=== PATIENT | female | born 1940 | race Caucasian/White ===

== ENCOUNTER 2022-06-09 18:16 | Emergency (ER) | payer MEDICARE ==
[2022-06-09] MEDS ORDERED: Sodium Chloride 0.9% 10 ML Syringe FLUSH PRN (18:43)
[2022-06-09] MEDS ORDERED: Sodium Chloride 0.9% 2.5 ML Syringe FLUSH PRN (18:43)
[2022-06-09 18:56] LABS: BLOOD UREA NITROGEN,BUN 33 mg/dL (7.0-18.0); CARBON DIOXIDE,CO2 29.5 mmol/L (21.0-32.0); CHLORIDE,CL 103 mmol/L (98-107); GLUCOSE RANDOM 110 mg/dL (74-106); SODIUM,NA 141 mmol/L (136-145)
[2022-06-09 19:01] LABS: ESTIMATED GFR 45 mL/min (>60)
== END 2022-06-09 21:04 | disposition home or self-care (01) ==
LOC: MW.ED 18:16
DX: N30.00 Acute cystitis without hematuria (principal); R47.89 Other speech disturbances; Z88.0 Allergy status to penicillin; Z88.1 Allergy status to other antibiotic agents; Z88.8 Allergy status to other drugs, medicaments and biological substances
CPT/HCPCS: 36415; 71045; 80048; 81001; 84484; 85025; 87086; 87088; 87186; 93005; 99284; J3490

== ENCOUNTER 2022-09-13 12:22 | Emergency (ER) | payer MEDICARE ==
[2022-09-13 12:54] LABS: BILIRUBIN,URINE NEGATIVE (NEGATIVE); COLOR,URINE ORANGE; GLUCOSE,URINE NEGATIVE (NEGATIVE); KETONES,URINE NEGATIVE (NEGATIVE); LEUKOCYTE ESTERASE,URINE TRACE (NEGATIVE); NITRITE,URINE POSITIVE (NEGATIVE); OCCULT BLOOD,URINE NEGATIVE (NEGATIVE); PH,URINE 5.5 (5.0-8.0); PROTEIN,URINE NEGATIVE (NEGATIVE)
[2022-09-13 13:05] LABS: APPEARANCE,URINE SLT CLOUDY
[2022-09-13 13:07] LABS: BACTERIA,URINE 2+ (NEGATIVE); EPITHELIAL CELLS,URINE OCCASIONAL (NONE-FEW); RBC,URINE 0-2 (0-2/HPF)
== END 2022-09-13 13:24 | disposition home or self-care (01) ==
LOC: MW.ED 12:22
DX: N39.0 Urinary tract infection, site not specified (principal); Z88.0 Allergy status to penicillin; Z88.1 Allergy status to other antibiotic agents; Z88.8 Allergy status to other drugs, medicaments and biological substances
CPT/HCPCS: 81001; 87086; 87088; 87186; 99283

== ENCOUNTER 2022-12-16 10:45 | Emergency (ER) | payer MEDICARE ==
[2022-12-16] MEDS ORDERED: Sodium Chloride 0.9% 2.5 ML Syringe FLUSH PRN (11:10)
[2022-12-16] MEDS ORDERED: Sodium Chloride 0.9% 10 ML Syringe FLUSH PRN (11:10)
[2022-12-16] MEDS ORDERED: Sodium Chloride 0.9% 500 ML IV STA (11:12)
[2022-12-16 12:15] LABS: APPEARANCE,URINE CLEAR; BILIRUBIN,URINE NEGATIVE (NEGATIVE); COLOR,URINE YELLOW; GLUCOSE,URINE NEGATIVE (NEGATIVE); KETONES,URINE NEGATIVE (NEGATIVE); LEUKOCYTE ESTERASE,URINE NEGATIVE (NEGATIVE); NITRITE,URINE NEGATIVE (NEGATIVE); OCCULT BLOOD,URINE NEGATIVE (NEGATIVE); PROTEIN,URINE NEGATIVE (NEGATIVE); UROBILINOGEN,URINE 0.2 EU/dL (<2.0)
[2022-12-16 12:22] LABS: BASOPHILS ABSOLUTE AUTO 0.04 K/uL (0.00-0.20); BASOPHILS PERCENT AUTO 0.4 % (0.0-1.0); EOSINOPHILS ABSOLUTE AUTO 0.19 K/uL (0.00-0.45); EOSINOPHILS PERCENT AUTO 2.1 % (0.0-6.0); HEMATOCRIT 38.1 % (37.0-47.0); HEMOGLOBIN 12.6 g/dL (12.0-16.0); IMMATURE GRAN ABSOLUTE AUTO 0.11 K/uL (0.00-0.05); IMMATURE GRAN PERCENT AUTO 1.2 % (0.0-0.4); LYMPHOCYTES ABSOLUTE AUTO 1.56 K/uL (1.00-4.80); LYMPHOCYTES PERCENT AUTO 16.9 % (24.0-44.0); MEAN CORPUSCULAR HEMOGLOBIN 32.1 pg (28.0-32.0); MEAN CORPUSCULAR HGB CONC 33.1 g/dL (32.0-36.0); MEAN CORPUSCULAR VOLUME 97.2 fL (83.0-99.0); MEAN PLATELET VOLUME 9.2 fL (9.4-12.3); MONOCYTES ABSOLUTE AUTO 1.32 K/uL (0.00-0.80); MONOCYTES PERCENT AUTO 14.3 % (0.0-8.0); NEUTROPHILS PERCENT AUTO 65.1 % (41.0-71.0); PLATELET COUNT,PLT 286 K/uL (150-400); RED BLOOD CELL COUNT 3.92 M/uL (4.10-5.30); WHITE BLOOD CELL COUNT,WBC 9.22 K/uL (3.9-11.3)
[2022-12-16 12:47] LABS: A/G RATIO 0.6 (0.9-1.6); ALBUMIN 2.9 g/dL (3.4-5.0); BILIRUBIN TOTAL 0.2 mg/dL (0.2-1.0); CALCIUM 9.4 mg/dL (8.5-10.1); CARBON DIOXIDE,CO2 28.3 mmol/L (21.0-32.0); CREATININE 1.2 mg/dL (0.6-1.0); EST CRCL DRUG DOSING (CG) 30.14 mL/min; PROTEIN TOTAL,TP 7.4 g/dL (6.4-8.2)
[2022-12-16 13:02] LABS: CORONAVIRUS COVID-19 NAA NEGATIVE (NEGATIVE); INFLUENZA A NAA NEGATIVE (NEGATIVE); INFLUENZA B NAA NEGATIVE (NEGATIVE)
[2022-12-16] MEDS ORDERED: Lidocaine 4% 1 each Patch TOP STA (13:26)
== END 2022-12-16 13:57 | disposition home or self-care (01) ==
LOC: MW.ED 10:45
DX: R39.11 Hesitancy of micturition (principal); R05.1 Acute cough; Z88.0 Allergy status to penicillin; Z88.8 Allergy status to other drugs, medicaments and biological substances; Z88.1 Allergy status to other antibiotic agents; Z79.899 Other long term (current) drug therapy; Z20.822 Contact with and (suspected) exposure to COVID-19
CPT/HCPCS: 0240U; 36415; 51798; 71046; 80053; 81003; 83690; 85025; 96360; 99283; A9270; J3490; J7030

== ENCOUNTER 2023-04-03 12:09 | Emergency (ER) | payer MEDICARE ==
[2023-04-03 12:34] LABS: APPEARANCE,URINE SLT CLOUDY; BILIRUBIN,URINE NEGATIVE (NEGATIVE); COLOR,URINE YELLOW; GLUCOSE,URINE NEGATIVE (NEGATIVE); KETONES,URINE NEGATIVE (NEGATIVE); LEUKOCYTE ESTERASE,URINE LARGE (NEGATIVE); NITRITE,URINE NEGATIVE (NEGATIVE); OCCULT BLOOD,URINE NEGATIVE (NEGATIVE); PROTEIN,URINE NEGATIVE (NEGATIVE); UROBILINOGEN,URINE 0.2 EU/dL (<2.0)
[2023-04-03 12:52] LABS: BACTERIA,URINE 1+ (NEGATIVE); EPITHELIAL CELLS,URINE FEW (NONE-FEW); MUCUS,URINE LIGHT (NONE-MOD); RBC,URINE 0-2 (0-2/HPF)
== END 2023-04-03 13:23 | disposition home or self-care (01) ==
LOC: MW.ED 12:09
DX: N39.0 Urinary tract infection, site not specified (principal); Z88.0 Allergy status to penicillin; Z88.8 Allergy status to other drugs, medicaments and biological substances; Z79.899 Other long term (current) drug therapy
CPT/HCPCS: 81001; 87086; 99283

== ENCOUNTER 2023-06-14 10:50 | Emergency (ER) | payer MEDICARE ==
[2023-06-14 12:11] LABS: APPEARANCE,URINE CLEAR; BILIRUBIN,URINE NEGATIVE (NEGATIVE); COLOR,URINE YELLOW; GLUCOSE,URINE NEGATIVE (NEGATIVE); KETONES,URINE NEGATIVE (NEGATIVE); LEUKOCYTE ESTERASE,URINE NEGATIVE (NEGATIVE); NITRITE,URINE NEGATIVE (NEGATIVE); OCCULT BLOOD,URINE NEGATIVE (NEGATIVE); PROTEIN,URINE NEGATIVE (NEGATIVE); UROBILINOGEN,URINE 0.2 EU/dL (<2.0)
[2023-06-14 12:31] LABS: BASOPHILS ABSOLUTE AUTO 0.04 K/uL (0.00-0.20); BASOPHILS PERCENT AUTO 0.7 % (0.0-1.0); EOSINOPHILS ABSOLUTE AUTO 0.19 K/uL (0.00-0.45); EOSINOPHILS PERCENT AUTO 3.2 % (0.0-6.0); HEMATOCRIT 35.2 % (37.0-47.0); HEMOGLOBIN 10.9 g/dL (12.0-16.0); IMMATURE GRAN ABSOLUTE AUTO 0.03 K/uL (0.00-0.05); IMMATURE GRAN PERCENT AUTO 0.5 % (0.0-0.4); LYMPHOCYTES ABSOLUTE AUTO 1.36 K/uL (1.00-4.80); LYMPHOCYTES PERCENT AUTO 22.7 % (24.0-44.0); MEAN CORPUSCULAR HEMOGLOBIN 31.1 pg (28.0-32.0); MEAN CORPUSCULAR VOLUME 100.6 fL (83.0-99.0); MEAN PLATELET VOLUME 9.4 fL (9.4-12.3); MONOCYTES ABSOLUTE AUTO 0.96 K/uL (0.00-0.80); NEUTROPHILS ABSOLUTE AUTO 3.41 K/uL (1.80-7.70); NEUTROPHILS PERCENT AUTO 56.9 % (41.0-71.0); PLATELET COUNT,PLT 261 K/uL (150-400); WHITE BLOOD CELL COUNT,WBC 5.99 K/uL (3.9-11.3)
[2023-06-14 13:09] LABS: MAGNESIUM 2.3 mg/dL (1.8-2.4)
[2023-06-14 13:10] LABS: A/G RATIO 0.7 (0.9-1.6); BILIRUBIN TOTAL 0.2 mg/dL (0.2-1.0); CALCIUM 10.4 mg/dL (8.5-10.1); CARBON DIOXIDE,CO2 36.4 mmol/L (21.0-32.0); CREATININE 1.4 mg/dL (0.6-1.0); EST CRCL DRUG DOSING (CG) 24.74 mL/min; PROTEIN TOTAL,TP 7.1 g/dL (6.4-8.2)
[2023-06-14] MEDS: Furosemide 40 MG/4 ML VIAL IVPUSH STA (13:43)
[2023-06-14] MEDS: methylPREDNISolone Sodium Succinate 125 MG/2 ML SDV IVPUSH STA (13:43)
[2023-06-14] MEDS: Albuterol/Ipratropium 3.0-0.5 MG/3 ML Neb Soln NEB STA (13:43)
== END 2023-06-14 16:02 | disposition home or self-care (01) ==
LOC: MW.ED 10:50
DX: R60.0 Localized edema (principal); J44.9 Chronic obstructive pulmonary disease, unspecified; I25.10 Atherosclerotic heart disease of native coronary artery without angina pectoris; I50.9 Heart failure, unspecified; Z95.0 Presence of cardiac pacemaker; Z79.899 Other long term (current) drug therapy; Z75.8 Other problems related to medical facilities and other health care
CPT/HCPCS: 36415; 71046; 71046-26; 80053; 81003; 83690; 83735; 83880; 84484; 85025; 93005; 93010; 96374; 96375; 99284; 99284-25; J1940; J2930; J7620-GY

== ENCOUNTER 2023-06-23 10:08 | Emergency (ER) | payer MEDICARE ==
[2023-06-23 10:31] LABS: APPEARANCE,URINE CLEAR; BILIRUBIN,URINE NEGATIVE (NEGATIVE); COLOR,URINE STRAW; GLUCOSE,URINE NEGATIVE (NEGATIVE); KETONES,URINE NEGATIVE (NEGATIVE); LEUKOCYTE ESTERASE,URINE NEGATIVE (NEGATIVE); NITRITE,URINE NEGATIVE (NEGATIVE); OCCULT BLOOD,URINE NEGATIVE (NEGATIVE); PROTEIN,URINE NEGATIVE (NEGATIVE); UROBILINOGEN,URINE 0.2 EU/dL (<2.0)
[2023-06-23 10:53] LABS: BASOPHILS ABSOLUTE AUTO 0.02 K/uL (0.00-0.20); BASOPHILS PERCENT AUTO 0.3 % (0.0-1.0); EOSINOPHILS ABSOLUTE AUTO 0.16 K/uL (0.00-0.45); EOSINOPHILS PERCENT AUTO 2.2 % (0.0-6.0); HEMATOCRIT 36.6 % (37.0-47.0); HEMOGLOBIN 11.5 g/dL (12.0-16.0); IMMATURE GRAN ABSOLUTE AUTO 0.03 K/uL (0.00-0.05); IMMATURE GRAN PERCENT AUTO 0.4 % (0.0-0.4); LYMPHOCYTES ABSOLUTE AUTO 1.57 K/uL (1.00-4.80); LYMPHOCYTES PERCENT AUTO 21.1 % (24.0-44.0); MEAN CORPUSCULAR HEMOGLOBIN 31.7 pg (28.0-32.0); MEAN CORPUSCULAR HGB CONC 31.4 g/dL (32.0-36.0); MEAN CORPUSCULAR VOLUME 100.8 fL (83.0-99.0); MEAN PLATELET VOLUME 9.7 fL (9.4-12.3); MONOCYTES PERCENT AUTO 14.8 % (0.0-8.0); NEUTROPHILS ABSOLUTE AUTO 4.56 K/uL (1.80-7.70); NEUTROPHILS PERCENT AUTO 61.2 % (41.0-71.0); PLATELET COUNT,PLT 247 K/uL (150-400); RED BLOOD CELL COUNT 3.63 M/uL (4.10-5.30); WHITE BLOOD CELL COUNT,WBC 7.44 K/uL (3.9-11.3)
[2023-06-23 11:22] LABS: A/G RATIO 0.8 (0.9-1.6); ALBUMIN 3.4 g/dL (3.4-5.0); BILIRUBIN TOTAL 0.4 mg/dL (0.2-1.0); CALCIUM 10.4 mg/dL (8.5-10.1); CARBON DIOXIDE,CO2 34.9 mmol/L (21.0-32.0); CREATININE 1.1 mg/dL (0.6-1.0); EST CRCL DRUG DOSING (CG) 32.87 mL/min; MAGNESIUM 2.1 mg/dL (1.8-2.4); POTASSIUM,K 4.2 mmol/L (3.5-5.1); PROTEIN TOTAL,TP 7.5 g/dL (6.4-8.2)
== END 2023-06-23 13:32 | disposition home or self-care (01) ==
LOC: MW.ED 10:08
DX: R42 Dizziness and giddiness (principal); I50.9 Heart failure, unspecified; I25.10 Atherosclerotic heart disease of native coronary artery without angina pectoris; Z75.8 Other problems related to medical facilities and other health care; Z88.0 Allergy status to penicillin; Z88.1 Allergy status to other antibiotic agents; Z88.8 Allergy status to other drugs, medicaments and biological substances; Z79.899 Other long term (current) drug therapy; Z95.0 Presence of cardiac pacemaker; Z90.710 Acquired absence of both cervix and uterus
CPT/HCPCS: 36415; 70450; 70450-26; 80053; 81003; 83735; 84484; 85025; 93005; 93010; 93970; 93970-26; 99282; 99284

== ENCOUNTER 2023-07-06 11:44 | Inpatient (IN) | payer MEDICARE ==
[2023-07-06] MEDS: Sodium Chloride 0.9% 2.5 ML Syringe FLUSH PRN (12:02)
[2023-07-06] MEDS: Sodium Chloride 0.9% 10 ML Syringe FLUSH PRN (12:02)
[2023-07-06 12:22] LABS: BASOPHILS ABSOLUTE AUTO 0.02 K/uL (0.00-0.20); BASOPHILS PERCENT AUTO 0.2 % (0.0-1.0); EOSINOPHILS ABSOLUTE AUTO 0.16 K/uL (0.00-0.45); HEMATOCRIT 34.7 % (37.0-47.0); HEMOGLOBIN 10.8 g/dL (12.0-16.0); IMMATURE GRAN ABSOLUTE AUTO 0.04 K/uL (0.00-0.05); IMMATURE GRAN PERCENT AUTO 0.5 % (0.0-0.4); LYMPHOCYTES PERCENT AUTO 6.2 % (24.0-44.0); MEAN CORPUSCULAR HEMOGLOBIN 31.7 pg (28.0-32.0); MEAN CORPUSCULAR HGB CONC 31.1 g/dL (32.0-36.0); MEAN CORPUSCULAR VOLUME 101.8 fL (83.0-99.0); MEAN PLATELET VOLUME 9.6 fL (9.4-12.3); MONOCYTES ABSOLUTE AUTO 1.02 K/uL (0.00-0.80); MONOCYTES PERCENT AUTO 12.6 % (0.0-8.0); NEUTROPHILS ABSOLUTE AUTO 6.37 K/uL (1.80-7.70); NEUTROPHILS PERCENT AUTO 78.5 % (41.0-71.0); PLATELET COUNT,PLT 219 K/uL (150-400); RED BLOOD CELL COUNT 3.41 M/uL (4.10-5.30); WHITE BLOOD CELL COUNT,WBC 8.11 K/uL (3.9-11.3)
[2023-07-06 13:11] LABS: A/G RATIO 0.8 (0.9-1.6); ALBUMIN 3.3 g/dL (3.4-5.0); BILIRUBIN TOTAL 0.4 mg/dL (0.2-1.0); CALCIUM 10.2 mg/dL (8.5-10.1); CARBON DIOXIDE,CO2 29.9 mmol/L (21.0-32.0); CREATININE 1.2 mg/dL (0.6-1.0); EST CRCL DRUG DOSING (CG) 28.87 mL/min; POTASSIUM,K 4.5 mmol/L (3.5-5.1); PROTEIN TOTAL,TP 7.6 g/dL (6.4-8.2)
[2023-07-06] MEDS: Furosemide 40 MG/4 ML VIAL IVPUSH ONE ×2 (14:35→20:14)
[2023-07-06 16:25] LABS: CORONAVIRUS COVID-19 NAA NEGATIVE (NEGATIVE); INFLUENZA A NAA POSITIVE (NEGATIVE); INFLUENZA B NAA NEGATIVE (NEGATIVE); RESPIRATORY SYNCYTIAL VIR NAA NEGATIVE (NEGATIVE)
[2023-07-06] MEDS ORDERED: Naloxone 0.4 MG/ML SDV IVPUSH PRN (18:17)
[2023-07-06] MEDS ORDERED: Ondansetron 4 MG Tab.DIS PO PRN (18:17)
[2023-07-06] MEDS ORDERED: Polyethylene Glycol 3350 Powder 17 GM Packet PO PRN (18:17)
[2023-07-06] MEDS ORDERED: Morphine 2 MG/ML SYRINGE IVPUSH PRN (18:17)
[2023-07-06] MEDS ORDERED: Enoxaparin 40 MG/0.4 ML Syringe SUBCUT SCH (18:30)
[2023-07-06] MEDS ORDERED: Oseltamivir 30 MG Cap PO SCH (18:30)
[2023-07-06] MEDS ORDERED: Enoxaparin 30 MG/0.3 ML Syringe SUBCUT SCH (19:00)
[2023-07-06] MEDS: Pantoprazole 40 MG in Sodium Chloride 0.9% 10 ML IVPUSH SCH (19:02)
[2023-07-06] MEDS: Oseltamivir 75 MG Cap PO ONE (19:02)
[2023-07-06] MEDS: Enoxaparin 40 MG/0.4 ML Syringe SUBCUT SCH (19:04)
[2023-07-06] MEDS: cefTRIAXone 1 GM in Sodium Chloride 0.9% 50 ML IV SCH (20:14)
[2023-07-06] MEDS: methylPREDNISolone Sodium Succinate 125 MG/2 ML SDV IVPUSH ONE (20:14)
[2023-07-06] MEDS: Albuterol/Ipratropium 3.0-0.5 MG/3 ML Neb Soln NEB PRN (20:25)
[2023-07-07] MEDS: Bacitracin/Neomycin/Polymyxin B Oint 28.4 GM Tube TOP PRN (02:53)
[2023-07-07] MEDS: Acetaminophen 325 MG Tab PO PRN (03:13)
[2023-07-07 06:00] LABS: BASOPHILS ABSOLUTE AUTO 0.01 K/uL (0.00-0.20); BASOPHILS PERCENT AUTO 0.2 % (0.0-1.0); HEMATOCRIT 31.7 % (37.0-47.0); HEMOGLOBIN 10.1 g/dL (12.0-16.0); IMMATURE GRAN ABSOLUTE AUTO 0.04 K/uL (0.00-0.05); IMMATURE GRAN PERCENT AUTO 0.9 % (0.0-0.4); LYMPHOCYTES ABSOLUTE AUTO 0.55 K/uL (1.00-4.80); LYMPHOCYTES PERCENT AUTO 12.7 % (24.0-44.0); MEAN CORPUSCULAR HGB CONC 31.9 g/dL (32.0-36.0); MEAN CORPUSCULAR VOLUME 100.3 fL (83.0-99.0); MEAN PLATELET VOLUME 9.6 fL (9.4-12.3); MONOCYTES ABSOLUTE AUTO 0.22 K/uL (0.00-0.80); MONOCYTES PERCENT AUTO 5.1 % (0.0-8.0); NEUTROPHILS ABSOLUTE AUTO 3.52 K/uL (1.80-7.70); NEUTROPHILS PERCENT AUTO 81.1 % (41.0-71.0); PLATELET COUNT,PLT 191 K/uL (150-400); RED BLOOD CELL COUNT 3.16 M/uL (4.10-5.30); WHITE BLOOD CELL COUNT,WBC 4.34 K/uL (3.9-11.3)
[2023-07-07 06:22] LABS: A/G RATIO 0.7 (0.9-1.6); ALBUMIN 2.7 g/dL (3.4-5.0); BILIRUBIN TOTAL 0.2 mg/dL (0.2-1.0); CALCIUM 9.2 mg/dL (8.5-10.1); CARBON DIOXIDE,CO2 32.9 mmol/L (21.0-32.0); CREATININE 1.5 mg/dL (0.6-1.0); EST CRCL DRUG DOSING (CG) 23.09 mL/min; POTASSIUM,K 4.3 mmol/L (3.5-5.1); PROTEIN TOTAL,TP 6.6 g/dL (6.4-8.2)
[2023-07-07] MEDS: Furosemide 40 MG/4 ML VIAL IVPUSH SCH (08:05)
[2023-07-07] MEDS: methylPREDNISolone Sodium Succinate 40 MG/1 ML SDV IVPUSH SCH (08:05)
[2023-07-07] MEDS: Oseltamivir 30 MG Cap PO SCH (08:07)
[2023-07-07] MEDS: Clopidogrel 75 MG Tab PO SCH (08:07)
[2023-07-07] MEDS: Metoprolol Succinate 50 MG Tab.ER PO SCH (08:41)
[2023-07-07] MEDS: Enoxaparin 30 MG/0.3 ML Syringe SUBCUT SCH (20:00)
[2023-07-07] MEDS: traZODone 50 MG Tab PO PRN (23:29)
[2023-07-08 07:01] LABS: BASOPHILS ABSOLUTE AUTO 0.01 K/uL (0.00-0.20); BASOPHILS PERCENT AUTO 0.2 % (0.0-1.0); HEMATOCRIT 30.3 % (37.0-47.0); IMMATURE GRAN ABSOLUTE AUTO 0.02 K/uL (0.00-0.05); IMMATURE GRAN PERCENT AUTO 0.5 % (0.0-0.4); LYMPHOCYTES ABSOLUTE AUTO 0.63 K/uL (1.00-4.80); LYMPHOCYTES PERCENT AUTO 14.8 % (24.0-44.0); MEAN CORPUSCULAR HEMOGLOBIN 32.4 pg (28.0-32.0); MEAN CORPUSCULAR VOLUME 98.1 fL (83.0-99.0); MEAN PLATELET VOLUME 10.2 fL (9.4-12.3); MONOCYTES ABSOLUTE AUTO 0.87 K/uL (0.00-0.80); MONOCYTES PERCENT AUTO 20.4 % (0.0-8.0); NEUTROPHILS ABSOLUTE AUTO 2.73 K/uL (1.80-7.70); NEUTROPHILS PERCENT AUTO 64.1 % (41.0-71.0); PLATELET COUNT,PLT 189 K/uL (150-400); RED BLOOD CELL COUNT 3.09 M/uL (4.10-5.30); WHITE BLOOD CELL COUNT,WBC 4.26 K/uL (3.9-11.3)
[2023-07-08 07:14] LABS: A/G RATIO 0.7 (0.9-1.6); ALBUMIN 2.5 g/dL (3.4-5.0); BILIRUBIN TOTAL 0.1 mg/dL (0.2-1.0); CALCIUM 8.5 mg/dL (8.5-10.1); CARBON DIOXIDE,CO2 30.5 mmol/L (21.0-32.0); CREATININE 1.5 mg/dL (0.6-1.0); EST CRCL DRUG DOSING (CG) 23.09 mL/min; POTASSIUM,K 3.4 mmol/L (3.5-5.1); PROTEIN TOTAL,TP 6.2 g/dL (6.4-8.2)
[2023-07-08] MEDS: Metoprolol Succinate 25 MG Tab.ER PO SCH (08:38)
[2023-07-09 06:20] LABS: HEMATOCRIT 33.3 % (37.0-47.0); HEMOGLOBIN 10.6 g/dL (12.0-16.0); IMMATURE GRAN ABSOLUTE AUTO 0.02 K/uL (0.00-0.05); IMMATURE GRAN PERCENT AUTO 0.6 % (0.0-0.4); LYMPHOCYTES ABSOLUTE AUTO 0.56 K/uL (1.00-4.80); LYMPHOCYTES PERCENT AUTO 17.3 % (24.0-44.0); MEAN CORPUSCULAR HEMOGLOBIN 31.9 pg (28.0-32.0); MEAN CORPUSCULAR HGB CONC 31.8 g/dL (32.0-36.0); MEAN CORPUSCULAR VOLUME 100.3 fL (83.0-99.0); MONOCYTES ABSOLUTE AUTO 0.38 K/uL (0.00-0.80); MONOCYTES PERCENT AUTO 11.7 % (0.0-8.0); NEUTROPHILS ABSOLUTE AUTO 2.28 K/uL (1.80-7.70); NEUTROPHILS PERCENT AUTO 70.4 % (41.0-71.0); PLATELET COUNT,PLT 214 K/uL (150-400); RED BLOOD CELL COUNT 3.32 M/uL (4.10-5.30); WHITE BLOOD CELL COUNT,WBC 3.24 K/uL (3.9-11.3)
[2023-07-09 06:42] LABS: A/G RATIO 0.7 (0.9-1.6); ALBUMIN 2.5 g/dL (3.4-5.0); BILIRUBIN TOTAL 0.1 mg/dL (0.2-1.0); CALCIUM 8.5 mg/dL (8.5-10.1); CARBON DIOXIDE,CO2 32.9 mmol/L (21.0-32.0); CREATININE 1.4 mg/dL (0.6-1.0); EST CRCL DRUG DOSING (CG) 24.74 mL/min; POTASSIUM,K 3.8 mmol/L (3.5-5.1); PROTEIN TOTAL,TP 6.1 g/dL (6.4-8.2)
== END 2023-07-09 17:20 | disposition home or self-care (01) | DRG 193 ==
LOC: MW.ED 11:44 → MW.MS 17:24 → OBSVTOIN 07-07 09:43
PROVIDERS: ADMIT Family Medicine; ATTEND Internal Medicine
DX: J96.91 Respiratory failure, unspecified with hypoxia (principal); I50.9 Heart failure, unspecified; J11.1 Influenza due to unidentified influenza virus with other respiratory manifestations; J10.1 Influenza due to other identified influenza virus with other respiratory manifestations; Z88.8 Allergy status to other drugs, medicaments and biological substances; I50.33 Acute on chronic diastolic (congestive) heart failure; J96.01 Acute respiratory failure with hypoxia; J44.0 Chronic obstructive pulmonary disease with (acute) lower respiratory infection; J44.1 Chronic obstructive pulmonary disease with (acute) exacerbation; I25.10 Atherosclerotic heart disease of native coronary artery without angina pectoris; I35.0 Nonrheumatic aortic (valve) stenosis; H91.90 Unspecified hearing loss, unspecified ear; M19.90 Unspecified osteoarthritis, unspecified site; M81.0 Age-related osteoporosis without current pathological fracture; F41.9 Anxiety disorder, unspecified; Z88.0 Allergy status to penicillin; Z88.1 Allergy status to other antibiotic agents; Z95.0 Presence of cardiac pacemaker; Z79.02 Long term (current) use of antithrombotics/antiplatelets; Z98.49 Cataract extraction status, unspecified eye; Z90.710 Acquired absence of both cervix and uterus; Z79.899 Other long term (current) drug therapy
CPT/HCPCS: 0241U; 36415; 71045; 80053; 83880; 84484; 85025; 93306; 96374; 97162; 99285; 93010; 96375; 96376; A9270-GY; C9113; G0378; J0696; J1650; J1940; J2920; J2930; J3490; J7620-GY

== ENCOUNTER 2023-11-27 12:53 | Inpatient (IN) | payer MEDICARE ==
[2023-11-27 13:52] LABS: BASOPHILS ABSOLUTE AUTO 0.03 K/uL (0.00-0.20); BASOPHILS PERCENT AUTO 0.4 % (0.0-1.0); EOSINOPHILS ABSOLUTE AUTO 0.16 K/uL (0.00-0.45); EOSINOPHILS PERCENT AUTO 1.9 % (0.0-6.0); HEMATOCRIT 35.8 % (37.0-47.0); HEMOGLOBIN 11.2 g/dL (12.0-16.0); IMMATURE GRAN ABSOLUTE AUTO 0.03 K/uL (0.00-0.05); IMMATURE GRAN PERCENT AUTO 0.4 % (0.0-0.4); LYMPHOCYTES ABSOLUTE AUTO 1.62 K/uL (1.00-4.80); MEAN CORPUSCULAR HEMOGLOBIN 30.9 pg (28.0-32.0); MEAN CORPUSCULAR HGB CONC 31.3 g/dL (32.0-36.0); MEAN CORPUSCULAR VOLUME 98.9 fL (83.0-99.0); MEAN PLATELET VOLUME 9.4 fL (9.4-12.3); MONOCYTES ABSOLUTE AUTO 1.23 K/uL (0.00-0.80); MONOCYTES PERCENT AUTO 14.4 % (0.0-8.0); NEUTROPHILS ABSOLUTE AUTO 5.47 K/uL (1.80-7.70); NEUTROPHILS PERCENT AUTO 63.9 % (41.0-71.0); PLATELET COUNT,PLT 218 K/uL (150-400); RED BLOOD CELL COUNT 3.62 M/uL (4.10-5.30); WHITE BLOOD CELL COUNT,WBC 8.54 K/uL (3.9-11.3)
[2023-11-27] MEDS: Sodium Chloride 0.9% 2.5 ML Syringe FLUSH PRN (13:52)
[2023-11-27] MEDS: Sodium Chloride 0.9% 1,000 ML IV ONE (13:52)
[2023-11-27] MEDS: methylPREDNISolone Sodium Succinate 125 MG/2 ML SDV IVPUSH ONE (13:52)
[2023-11-27] MEDS: Sodium Chloride 0.9% 10 ML Syringe FLUSH PRN (13:52)
[2023-11-27 14:09] LABS: CORONAVIRUS COVID-19 NAA NEGATIVE (NEGATIVE); INFLUENZA A NAA NEGATIVE (NEGATIVE); INFLUENZA B NAA NEGATIVE (NEGATIVE); RESPIRATORY SYNCYTIAL VIR NAA NEGATIVE (NEGATIVE)
[2023-11-27] MEDS: Albuterol/Ipratropium 3.0-0.5 MG/3 ML Neb Soln NEB ONE (14:12)
[2023-11-27 14:27] LABS: A/G RATIO 0.9 (0.9-1.6); ALBUMIN 3.4 g/dL (3.4-5.0); BILIRUBIN TOTAL 0.3 mg/dL (0.2-1.0); CALCIUM 9.8 mg/dL (8.5-10.1); CARBON DIOXIDE,CO2 38.1 mmol/L (21.0-32.0); CREATININE 1.5 mg/dL (0.6-1.0); EST CRCL DRUG DOSING (CG) 21.69 mL/min; MAGNESIUM 2.5 mg/dL (1.8-2.4); POTASSIUM,K 4.2 mmol/L (3.5-5.1); PROTEIN TOTAL,TP 7.4 g/dL (6.4-8.2)
[2023-11-27 15:21] LABS: APPEARANCE,URINE CLEAR; BILIRUBIN,URINE NEGATIVE (NEGATIVE); COLOR,URINE YELLOW; GLUCOSE,URINE NEGATIVE (NEGATIVE); KETONES,URINE NEGATIVE (NEGATIVE); LEUKOCYTE ESTERASE,URINE NEGATIVE (NEGATIVE); NITRITE,URINE NEGATIVE (NEGATIVE); OCCULT BLOOD,URINE NEGATIVE (NEGATIVE); PH,URINE 6.5 (5.0-8.0); PROTEIN,URINE NEGATIVE (NEGATIVE); UROBILINOGEN,URINE 0.2 EU/dL (<2.0)
[2023-11-27] MEDS: cefTRIAXone 1 GM in Sodium Chloride 0.9% 50 ML IV ONE (15:26)
[2023-11-27] MEDS: Azithromycin 500 MG in Sodium Chloride 0.9% 250 ML IV ONE (15:26)
[2023-11-27] MEDS ORDERED: Albuterol/Ipratropium 3.0-0.5 MG/3 ML Neb Soln NEB PRN (16:17)
[2023-11-27] MEDS: Formoterol/Mometasone 200-5 MCG 8.8 GM Inhaler INH SCH (17:42)
[2023-11-27] MEDS: Furosemide 40 MG Tab PO SCH (17:42)
[2023-11-27] MEDS: Acetaminophen 325 MG Tab PO PRN (20:45)
[2023-11-27] MEDS: Enoxaparin 30 MG/0.3 ML Syringe SUBCUT SCH (20:46)
[2023-11-27] MEDS: ALPRAZolam 0.25 MG Tab PO PRN (20:46)
[2023-11-27] MEDS: guaiFENesin 600 MG Tab.ER PO SCH (20:47)
[2023-11-28 06:19] LABS: BASOPHILS ABSOLUTE AUTO 0.01 K/uL (0.00-0.20); BASOPHILS PERCENT AUTO 0.2 % (0.0-1.0); EOSINOPHILS ABSOLUTE AUTO 0.01 K/uL (0.00-0.45); EOSINOPHILS PERCENT AUTO 0.2 % (0.0-6.0); HEMOGLOBIN 10.1 g/dL (12.0-16.0); IMMATURE GRAN ABSOLUTE AUTO 0.02 K/uL (0.00-0.05); IMMATURE GRAN PERCENT AUTO 0.3 % (0.0-0.4); LYMPHOCYTES ABSOLUTE AUTO 1.11 K/uL (1.00-4.80); MEAN CORPUSCULAR HEMOGLOBIN 30.6 pg (28.0-32.0); MEAN CORPUSCULAR HGB CONC 30.6 g/dL (32.0-36.0); MEAN PLATELET VOLUME 9.9 fL (9.4-12.3); MONOCYTES ABSOLUTE AUTO 0.53 K/uL (0.00-0.80); MONOCYTES PERCENT AUTO 8.1 % (0.0-8.0); NEUTROPHILS ABSOLUTE AUTO 4.85 K/uL (1.80-7.70); NEUTROPHILS PERCENT AUTO 74.2 % (41.0-71.0); PLATELET COUNT,PLT 224 K/uL (150-400); WHITE BLOOD CELL COUNT,WBC 6.53 K/uL (3.9-11.3)
[2023-11-28 06:42] LABS: A/G RATIO 0.8 (0.9-1.6); ALBUMIN 2.9 g/dL (3.4-5.0); BILIRUBIN TOTAL 0.3 mg/dL (0.2-1.0); CALCIUM 8.7 mg/dL (8.5-10.1); CARBON DIOXIDE,CO2 37.1 mmol/L (21.0-32.0); CREATININE 1.4 mg/dL (0.6-1.0); EST CRCL DRUG DOSING (CG) 23.24 mL/min; POTASSIUM,K 3.8 mmol/L (3.5-5.1); PROTEIN TOTAL,TP 6.7 g/dL (6.4-8.2)
[2023-11-28] MEDS: Digoxin 125 MCG Tab PO SCH (08:04)
[2023-11-28] MEDS: Furosemide 80 MG Tab PO SCH (08:04)
[2023-11-28] MEDS: Clopidogrel 75 MG Tab PO SCH (08:04)
[2023-11-28] MEDS: predniSONE 20 MG Tab PO SCH (08:04)
[2023-11-28] MEDS: cefTRIAXone 1 GM in Sodium Chloride 0.9% 50 ML IV SCH (13:50)
[2023-11-28] MEDS: Azithromycin 500 MG in Sodium Chloride 0.9% 250 ML IV SCH (14:58)
[2023-11-28] MEDS ORDERED: Ondansetron 4 MG Tab PO PRN (15:16)
[2023-11-29] MEDS: Furosemide 80 MG Tab PO SCH (05:36)
[2023-11-29 06:53] LABS: BASOPHILS ABSOLUTE AUTO 0.01 K/uL (0.00-0.20); BASOPHILS PERCENT AUTO 0.1 % (0.0-1.0); EOSINOPHILS ABSOLUTE AUTO 0.02 K/uL (0.00-0.45); EOSINOPHILS PERCENT AUTO 0.2 % (0.0-6.0); HEMATOCRIT 33.7 % (37.0-47.0); HEMOGLOBIN 10.3 g/dL (12.0-16.0); IMMATURE GRAN ABSOLUTE AUTO 0.04 K/uL (0.00-0.05); IMMATURE GRAN PERCENT AUTO 0.4 % (0.0-0.4); LYMPHOCYTES ABSOLUTE AUTO 1.67 K/uL (1.00-4.80); MEAN CORPUSCULAR HEMOGLOBIN 30.7 pg (28.0-32.0); MEAN CORPUSCULAR HGB CONC 30.6 g/dL (32.0-36.0); MEAN CORPUSCULAR VOLUME 100.6 fL (83.0-99.0); MEAN PLATELET VOLUME 10.2 fL (9.4-12.3); MONOCYTES ABSOLUTE AUTO 1.25 K/uL (0.00-0.80); MONOCYTES PERCENT AUTO 12.7 % (0.0-8.0); NEUTROPHILS ABSOLUTE AUTO 6.85 K/uL (1.80-7.70); NEUTROPHILS PERCENT AUTO 69.6 % (41.0-71.0); PLATELET COUNT,PLT 234 K/uL (150-400); RED BLOOD CELL COUNT 3.35 M/uL (4.10-5.30); WHITE BLOOD CELL COUNT,WBC 9.84 K/uL (3.9-11.3)
[2023-11-29 07:25] LABS: A/G RATIO 0.7 (0.9-1.6); ALBUMIN 2.8 g/dL (3.4-5.0); BILIRUBIN TOTAL 0.2 mg/dL (0.2-1.0); CALCIUM 9.1 mg/dL (8.5-10.1); CREATININE 1.1 mg/dL (0.6-1.0); EST CRCL DRUG DOSING (CG) 29.57 mL/min; POTASSIUM,K 3.8 mmol/L (3.5-5.1); PROTEIN TOTAL,TP 6.6 g/dL (6.4-8.2)
[2023-11-29] MEDS: Furosemide 40 MG Tab PO SCH (11:36)
[2023-11-30 05:55] LABS: BASOPHILS ABSOLUTE AUTO 0.02 K/uL (0.00-0.20); BASOPHILS PERCENT AUTO 0.2 % (0.0-1.0); EOSINOPHILS ABSOLUTE AUTO 0.03 K/uL (0.00-0.45); EOSINOPHILS PERCENT AUTO 0.4 % (0.0-6.0); HEMATOCRIT 34.3 % (37.0-47.0); HEMOGLOBIN 10.4 g/dL (12.0-16.0); IMMATURE GRAN ABSOLUTE AUTO 0.04 K/uL (0.00-0.05); IMMATURE GRAN PERCENT AUTO 0.5 % (0.0-0.4); LYMPHOCYTES ABSOLUTE AUTO 1.79 K/uL (1.00-4.80); LYMPHOCYTES PERCENT AUTO 21.3 % (24.0-44.0); MEAN CORPUSCULAR HEMOGLOBIN 30.7 pg (28.0-32.0); MEAN CORPUSCULAR HGB CONC 30.3 g/dL (32.0-36.0); MEAN CORPUSCULAR VOLUME 101.2 fL (83.0-99.0); MEAN PLATELET VOLUME 9.7 fL (9.4-12.3); MONOCYTES ABSOLUTE AUTO 1.37 K/uL (0.00-0.80); MONOCYTES PERCENT AUTO 16.3 % (0.0-8.0); NEUTROPHILS ABSOLUTE AUTO 5.16 K/uL (1.80-7.70); NEUTROPHILS PERCENT AUTO 61.3 % (41.0-71.0); PLATELET COUNT,PLT 224 K/uL (150-400); RED BLOOD CELL COUNT 3.39 M/uL (4.10-5.30); WHITE BLOOD CELL COUNT,WBC 8.41 K/uL (3.9-11.3)
[2023-11-30 06:19] LABS: A/G RATIO 0.7 (0.9-1.6); ALBUMIN 2.6 g/dL (3.4-5.0); BILIRUBIN TOTAL 0.2 mg/dL (0.2-1.0); CALCIUM 8.8 mg/dL (8.5-10.1); CARBON DIOXIDE,CO2 37.9 mmol/L (21.0-32.0); CREATININE 1.1 mg/dL (0.6-1.0); EST CRCL DRUG DOSING (CG) 29.57 mL/min; POTASSIUM,K 3.9 mmol/L (3.5-5.1); PROTEIN TOTAL,TP 6.3 g/dL (6.4-8.2)
[2023-11-30] MEDS: Metoprolol Tartrate 5 MG/5 ML SDV IVPUSH ONE (10:08)
[2023-11-30] MEDS: Metoprolol Succinate 25 MG Tab.ER PO SCH (10:09)
[2023-11-30] MEDS: Azithromycin 250 MG Tab PO SCH (15:49)
[2023-11-30] MEDS ORDERED: Metoprolol Tartrate 5 MG/5 ML SDV IVPUSH PRN (18:37)
[2023-12-01 05:18] LABS: BASOPHILS ABSOLUTE AUTO 0.02 K/uL (0.00-0.20); BASOPHILS PERCENT AUTO 0.3 % (0.0-1.0); EOSINOPHILS ABSOLUTE AUTO 0.03 K/uL (0.00-0.45); EOSINOPHILS PERCENT AUTO 0.5 % (0.0-6.0); HEMATOCRIT 34.2 % (37.0-47.0); HEMOGLOBIN 10.3 g/dL (12.0-16.0); IMMATURE GRAN ABSOLUTE AUTO 0.04 K/uL (0.00-0.05); IMMATURE GRAN PERCENT AUTO 0.7 % (0.0-0.4); LYMPHOCYTES ABSOLUTE AUTO 1.76 K/uL (1.00-4.80); LYMPHOCYTES PERCENT AUTO 30.1 % (24.0-44.0); MEAN CORPUSCULAR HEMOGLOBIN 30.2 pg (28.0-32.0); MEAN CORPUSCULAR HGB CONC 30.1 g/dL (32.0-36.0); MEAN CORPUSCULAR VOLUME 100.3 fL (83.0-99.0); MEAN PLATELET VOLUME 9.8 fL (9.4-12.3); MONOCYTES ABSOLUTE AUTO 1.07 K/uL (0.00-0.80); MONOCYTES PERCENT AUTO 18.3 % (0.0-8.0); NEUTROPHILS ABSOLUTE AUTO 2.93 K/uL (1.80-7.70); NEUTROPHILS PERCENT AUTO 50.1 % (41.0-71.0); PLATELET COUNT,PLT 233 K/uL (150-400); RED BLOOD CELL COUNT 3.41 M/uL (4.10-5.30); WHITE BLOOD CELL COUNT,WBC 5.85 K/uL (3.9-11.3)
[2023-12-01 05:41] LABS: A/G RATIO 0.7 (0.9-1.6); ALBUMIN 2.5 g/dL (3.4-5.0); BILIRUBIN TOTAL 0.2 mg/dL (0.2-1.0); CALCIUM 8.4 mg/dL (8.5-10.1); CARBON DIOXIDE,CO2 36.4 mmol/L (21.0-32.0); CREATININE 1.1 mg/dL (0.6-1.0); EST CRCL DRUG DOSING (CG) 29.57 mL/min; MAGNESIUM 2.6 mg/dL (1.8-2.4); POTASSIUM,K 3.5 mmol/L (3.5-5.1); PROTEIN TOTAL,TP 6.2 g/dL (6.4-8.2)
[2023-12-01] MEDS ORDERED: cefTRIAXone 1 GM Vial ONE (15:01)
== END 2023-12-01 15:40 | disposition home health service (06) | DRG 194 ==
LOC: MW.ED 12:53 → MW.MS 14:55
PROVIDERS: ADMIT Family Medicine; ATTEND Family Medicine
DX: J18.9 Pneumonia, unspecified organism (principal); J44.0 Chronic obstructive pulmonary disease with (acute) lower respiratory infection; J44.1 Chronic obstructive pulmonary disease with (acute) exacerbation; Z66 Do not resuscitate; I11.0 Hypertensive heart disease with heart failure; I50.9 Heart failure, unspecified; H91.90 Unspecified hearing loss, unspecified ear; M19.90 Unspecified osteoarthritis, unspecified site; M81.0 Age-related osteoporosis without current pathological fracture; I48.91 Unspecified atrial fibrillation; R00.0 Tachycardia, unspecified; Z99.81 Dependence on supplemental oxygen; Z88.1 Allergy status to other antibiotic agents; Z88.8 Allergy status to other drugs, medicaments and biological substances; Z91.011 Allergy to milk products; Z88.0 Allergy status to penicillin; Z79.02 Long term (current) use of antithrombotics/antiplatelets; Z79.51 Long term (current) use of inhaled steroids; Z79.899 Other long term (current) drug therapy; Z95.0 Presence of cardiac pacemaker; Z87.440 Personal history of urinary (tract) infections; Z98.49 Cataract extraction status, unspecified eye; Z90.710 Acquired absence of both cervix and uterus; Z95.2 Presence of prosthetic heart valve
CPT/HCPCS: 0241U; 36415; 71045; 80053; 81003; 82947; 83690; 83735; 85025; 94640; 94667; 96361; 96374; 97162; 97530; 99285; A9270-GY; J0456; J0696; J1650; J2919; J3490; J7030; J7050; J7620-GY

== ENCOUNTER 2023-12-29 14:12 | Emergency (ER) | payer MEDICARE ==
[2023-12-29] MEDS ORDERED: Sodium Chloride 0.9% 10 ML Syringe FLUSH PRN (14:14)
[2023-12-29] MEDS ORDERED: Sodium Chloride 0.9% 2.5 ML Syringe FLUSH PRN (14:14)
[2023-12-29 14:51] LABS: BASOPHILS ABSOLUTE AUTO 0.03 K/uL (0.00-0.20); BASOPHILS PERCENT AUTO 0.6 % (0.0-1.0); EOSINOPHILS ABSOLUTE AUTO 0.18 K/uL (0.00-0.45); EOSINOPHILS PERCENT AUTO 3.7 % (0.0-6.0); HEMATOCRIT 34.2 % (37.0-47.0); HEMOGLOBIN 10.7 g/dL (12.0-16.0); IMMATURE GRAN ABSOLUTE AUTO 0.02 K/uL (0.00-0.05); IMMATURE GRAN PERCENT AUTO 0.4 % (0.0-0.4); LYMPHOCYTES ABSOLUTE AUTO 1.36 K/uL (1.00-4.80); LYMPHOCYTES PERCENT AUTO 28.2 % (24.0-44.0); MEAN CORPUSCULAR HEMOGLOBIN 31.5 pg (28.0-32.0); MEAN CORPUSCULAR HGB CONC 31.3 g/dL (32.0-36.0); MEAN CORPUSCULAR VOLUME 100.6 fL (83.0-99.0); MEAN PLATELET VOLUME 9.1 fL (9.4-12.3); MONOCYTES ABSOLUTE AUTO 0.82 K/uL (0.00-0.80); NEUTROPHILS ABSOLUTE AUTO 2.42 K/uL (1.80-7.70); NEUTROPHILS PERCENT AUTO 50.1 % (41.0-71.0); PLATELET COUNT,PLT 241 K/uL (150-400); WHITE BLOOD CELL COUNT,WBC 4.83 K/uL (3.9-11.3)
[2023-12-29 15:25] LABS: A/G RATIO 0.9 (0.9-1.6); ALBUMIN 3.2 g/dL (3.4-5.0); BILIRUBIN TOTAL 0.2 mg/dL (0.2-1.0); CALCIUM 9.4 mg/dL (8.5-10.1); CARBON DIOXIDE,CO2 35.6 mmol/L (21.0-32.0); CREATININE 1.3 mg/dL (0.6-1.0); EST CRCL DRUG DOSING (CG) 26.17 mL/min; POTASSIUM,K 4.1 mmol/L (3.5-5.1); PROTEIN TOTAL,TP 6.9 g/dL (6.4-8.2)
[2023-12-29 18:48] LABS: APPEARANCE,URINE CLEAR; BILIRUBIN,URINE NEGATIVE (NEGATIVE); COLOR,URINE YELLOW; GLUCOSE,URINE NEGATIVE (NEGATIVE); KETONES,URINE NEGATIVE (NEGATIVE); LEUKOCYTE ESTERASE,URINE NEGATIVE (NEGATIVE); NITRITE,URINE NEGATIVE (NEGATIVE); OCCULT BLOOD,URINE NEGATIVE (NEGATIVE); PH,URINE 6.5 (5.0-8.0); PROTEIN,URINE NEGATIVE (NEGATIVE); UROBILINOGEN,URINE 0.2 EU/dL (<2.0)
[2023-12-29] MEDS ORDERED: Iopamidol 755 MG/ML 500 ML Multipack Bottle IVPUSH ONE (19:45)
== END 2023-12-29 21:08 | disposition home or self-care (01) ==
LOC: MW.ED 14:12
DX: R53.1 Weakness (principal); R42 Dizziness and giddiness; R20.0 Anesthesia of skin; I25.10 Atherosclerotic heart disease of native coronary artery without angina pectoris; I13.0 Hypertensive heart and chronic kidney disease with heart failure and stage 1 through stage 4 chronic kidney disease, or unspecified chronic kidney disease; I50.9 Heart failure, unspecified; N18.9 Chronic kidney disease, unspecified; J44.9 Chronic obstructive pulmonary disease, unspecified; Z90.710 Acquired absence of both cervix and uterus; Z95.0 Presence of cardiac pacemaker; Z88.0 Allergy status to penicillin; Z88.8 Allergy status to other drugs, medicaments and biological substances; Z91.011 Allergy to milk products; Z79.51 Long term (current) use of inhaled steroids; Z79.899 Other long term (current) drug therapy; Z75.8 Other problems related to medical facilities and other health care
CPT/HCPCS: 36415; 70450; 70450-26; 71045; 71045-26; 80053; 81003; 83735; 84484; 85025; 87428-QW; 93005; 99285

== ENCOUNTER 2024-09-22 22:55 | Emergency (ER) | payer MEDICARE ==
[2024-09-22 23:33] LABS: BASOPHILS ABSOLUTE AUTO 0.01 K/uL (0.00-0.20); BASOPHILS PERCENT AUTO 0.1 % (0.0-1.0); EOSINOPHILS ABSOLUTE AUTO 0.06 K/uL (0.00-0.45); EOSINOPHILS PERCENT AUTO 0.6 % (0.0-6.0); IMMATURE GRAN ABSOLUTE AUTO 0.03 K/uL (0.00-0.05); IMMATURE GRAN PERCENT AUTO 0.3 % (0.0-0.4); LYMPHOCYTES ABSOLUTE AUTO 0.27 K/uL (1.00-4.80); LYMPHOCYTES PERCENT AUTO 2.8 % (24.0-44.0); MEAN PLATELET VOLUME 9.5 fL (9.4-12.3); MONOCYTES ABSOLUTE AUTO 0.50 K/uL (0.00-0.80); MONOCYTES PERCENT AUTO 5.1 % (0.0-8.0); NEUTROPHILS ABSOLUTE AUTO 8.88 K/uL (1.80-7.70); NEUTROPHILS PERCENT AUTO 91.1 % (41.0-71.0); NRBC ABSOLUTE 0.00 K/uL (0.00-0.02); NRBC PERCENT 0.0 /100WBC (0.0-0.2); PLATELET COUNT,PLT 238 K/uL (150-400); RED BLOOD CELL COUNT 3.48 M/uL (4.10-5.30); WHITE BLOOD CELL COUNT,WBC 9.75 K/uL (3.9-11.3)
[2024-09-22] MEDS: Ondansetron 4 MG/2 ML SDV IVPUSH ONE (23:35)
[2024-09-23 00:01] LABS: A/G RATIO 0.8 (0.9-1.6); ALANINE AMINOTRANSFERASE,ALT 7.0 IU/L (14-63); ASPARTATE AMNIOTRANSFERASE,AST 17.0 IU/L (15-37); BILIRUBIN TOTAL 0.4 mg/dL (0.2-1.0); BLOOD UREA NITROGEN,BUN 82.0 mg/dL (7.0-18.0); CARBON DIOXIDE,CO2 33.0 mmol/L (21.0-32.0); CHLORIDE,CL 98.0 mmol/L (98-107); CREATININE 1.5 mg/dL (0.6-1.0); EST CRCL DRUG DOSING (CG) 23.25 mL/min; GLUCOSE RANDOM 173.0 mg/dL (74-106); POTASSIUM,K 4.6 mmol/L (3.5-5.1); PROTEIN TOTAL,TP 7.2 g/dL (6.4-8.2); SODIUM,NA 136.0 mmol/L (136-145)
[2024-09-23 00:05] LABS: ESTIMATED GFR 34.0 mL/min (>60)
[2024-09-23] MEDS: Iopamidol 755 Mg/ML 100 ML Bottle IVPUSH ONE (00:30)
[2024-09-23 01:42] LABS: APPEARANCE,URINE CLEAR; GLUCOSE,URINE NEGATIVE (NEGATIVE); OCCULT BLOOD,URINE NEGATIVE (NEGATIVE)
== END 2024-09-23 03:00 | disposition home or self-care (01) ==
LOC: MW.ED 22:55
DX: K85.90 Acute pancreatitis without necrosis or infection, unspecified (principal); R63.0 Anorexia; Z88.0 Allergy status to penicillin; Z88.1 Allergy status to other antibiotic agents; Z88.8 Allergy status to other drugs, medicaments and biological substances; Z79.899 Other long term (current) drug therapy; Z90.710 Acquired absence of both cervix and uterus
CPT/HCPCS: 36415; 74177; 80053; 81003; 83690; 85025; 96361; 96374; 99284; J2405; J7030; Q9967; 99283

== ENCOUNTER 2024-12-07 11:48 | Inpatient (IN) | payer MEDICARE ==
[2024-12-07 14:26] LABS: APPEARANCE,URINE CLEAR; GLUCOSE,URINE NEGATIVE (NEGATIVE); OCCULT BLOOD,URINE NEGATIVE (NEGATIVE)
[2024-12-07] MEDS ORDERED: Sodium Chloride 0.9% 10 ML Syringe FLUSH PRN ×2 (15:03→18:32)
[2024-12-07] MEDS ORDERED: Sodium Chloride 0.9% 2.5 ML Syringe FLUSH PRN ×2 (15:03→18:32)
[2024-12-07 16:01] LABS: BASOPHILS ABSOLUTE AUTO 0.03 K/uL (0.00-0.20); BASOPHILS PERCENT AUTO 0.7 % (0.0-1.0); EOSINOPHILS ABSOLUTE AUTO 0.11 K/uL (0.00-0.45); EOSINOPHILS PERCENT AUTO 2.6 % (0.0-6.0); IMMATURE GRAN ABSOLUTE AUTO 0.02 K/uL (0.00-0.05); IMMATURE GRAN PERCENT AUTO 0.5 % (0.0-0.4); LYMPHOCYTES ABSOLUTE AUTO 1.22 K/uL (1.00-4.80); LYMPHOCYTES PERCENT AUTO 28.4 % (24.0-44.0); MEAN PLATELET VOLUME 9.0 fL (9.4-12.3); MONOCYTES ABSOLUTE AUTO 0.68 K/uL (0.00-0.80); MONOCYTES PERCENT AUTO 15.9 % (0.0-8.0); NEUTROPHILS ABSOLUTE AUTO 2.23 K/uL (1.80-7.70); NEUTROPHILS PERCENT AUTO 51.9 % (41.0-71.0); NRBC ABSOLUTE 0.00 K/uL (0.00-0.02); NRBC PERCENT 0.0 /100WBC (0.0-0.2); PLATELET COUNT,PLT 243 K/uL (150-400); RED BLOOD CELL COUNT 3.09 M/uL (4.10-5.30); WHITE BLOOD CELL COUNT,WBC 4.29 K/uL (3.9-11.3)
[2024-12-07 17:05] LABS: LACTIC ACID 1.1 mmol/L (0.4-2.0)
[2024-12-07 17:11] LABS: A/G RATIO 0.9 (0.9-1.6); ALANINE AMINOTRANSFERASE,ALT 11 IU/L (14-63); ASPARTATE AMNIOTRANSFERASE,AST 18 IU/L (15-37); BILIRUBIN TOTAL 0.2 mg/dL (0.2-1.0); BLOOD UREA NITROGEN,BUN 59 mg/dL (7.0-18.0); CARBON DIOXIDE,CO2 32.2 mmol/L (21.0-32.0); CHLORIDE,CL 100 mmol/L (98-107); CREATINE KINASE,CK 27 U/L (26-308); CREATININE 1.4 mg/dL (0.6-1.0); GLUCOSE RANDOM 122 mg/dL (74-106); POTASSIUM,K 4.0 mmol/L (3.5-5.1); PRO B-TYPE NATRIUR PEPT,BNPPRO 765 pg/mL (0-450); PROTEIN TOTAL,TP 6.9 g/dL (6.4-8.2); SODIUM,NA 140 mmol/L (136-145)
[2024-12-07 17:12] LABS: ESTIMATED GFR 37 mL/min (>60)
[2024-12-07] MEDS: Potassium Chloride 20 MEQ Tab.ER PO SCH (21:14)
[2024-12-07] MEDS: Formoterol/Mometasone 200-5 MCG 8.8 GM Inhaler INH SCH (21:15)
[2024-12-07] MEDS: Linezolid 600 MG/300 ML 600 MG in Premix Bag 1 BAG IV SCH (21:19)
[2024-12-08 05:42] LABS: BASOPHILS ABSOLUTE AUTO 0.02 K/uL (0.00-0.20); BASOPHILS PERCENT AUTO 0.4 % (0.0-1.0); EOSINOPHILS ABSOLUTE AUTO 0.13 K/uL (0.00-0.45); EOSINOPHILS PERCENT AUTO 2.9 % (0.0-6.0); IMMATURE GRAN ABSOLUTE AUTO 0.02 K/uL (0.00-0.05); IMMATURE GRAN PERCENT AUTO 0.4 % (0.0-0.4); LYMPHOCYTES ABSOLUTE AUTO 1.34 K/uL (1.00-4.80); LYMPHOCYTES PERCENT AUTO 29.8 % (24.0-44.0); MEAN PLATELET VOLUME 9.1 fL (9.4-12.3); MONOCYTES ABSOLUTE AUTO 0.85 K/uL (0.00-0.80); MONOCYTES PERCENT AUTO 18.9 % (0.0-8.0); NEUTROPHILS ABSOLUTE AUTO 2.14 K/uL (1.80-7.70); NEUTROPHILS PERCENT AUTO 47.6 % (41.0-71.0); NRBC ABSOLUTE 0.00 K/uL (0.00-0.02); NRBC PERCENT 0.0 /100WBC (0.0-0.2); PLATELET COUNT,PLT 254 K/uL (150-400); RED BLOOD CELL COUNT 3.41 M/uL (4.10-5.30); WHITE BLOOD CELL COUNT,WBC 4.50 K/uL (3.9-11.3)
[2024-12-08 06:11] LABS: A/G RATIO 0.8 (0.9-1.6); ALANINE AMINOTRANSFERASE,ALT 9.0 IU/L (14-63); ASPARTATE AMNIOTRANSFERASE,AST 14.0 IU/L (15-37); BILIRUBIN TOTAL 0.3 mg/dL (0.2-1.0); BLOOD UREA NITROGEN,BUN 53.0 mg/dL (7.0-18.0); CARBON DIOXIDE,CO2 30.8 mmol/L (21.0-32.0); CHLORIDE,CL 104.0 mmol/L (98-107); CREATININE 1.3 mg/dL (0.6-1.0); EST CRCL DRUG DOSING (CG) 25.7 mL/min; GLUCOSE RANDOM 105.0 mg/dL (74-106); POTASSIUM,K 4.1 mmol/L (3.5-5.1); PROTEIN TOTAL,TP 6.8 g/dL (6.4-8.2); SODIUM,NA 143.0 mmol/L (136-145)
[2024-12-08 06:21] LABS: ESTIMATED GFR 40.0 mL/min (>60)
[2024-12-08] MEDS ORDERED: [UNRECOGNIZED DRUG - OTHER] PO SCH (09:00)
[2024-12-08] MEDS ORDERED: MAG PO SCH (09:00)
[2024-12-08] MEDS ORDERED: CALC PO SCH (09:00)
[2024-12-08] MEDS ORDERED: D3 PO SCH (09:00)
[2024-12-08] MEDS: Cholecalciferol (Vitamin D3) 25 MCG Tab PO SCH (09:03)
== END 2024-12-09 13:14 | disposition home or self-care (01) | DRG 602 ==
LOC: MW.ED 11:48 → MW.MS 18:16
PROVIDERS: ADMIT Internal Medicine; ATTEND Internal Medicine
DX: L03.115 Cellulitis of right lower limb (principal); J44.0 Chronic obstructive pulmonary disease with (acute) lower respiratory infection; J18.9 Pneumonia, unspecified organism; I11.0 Hypertensive heart disease with heart failure; I50.9 Heart failure, unspecified; I50.33 Acute on chronic diastolic (congestive) heart failure; N18.4 Chronic kidney disease, stage 4 (severe); L03.116 Cellulitis of left lower limb; H26.9 Unspecified cataract; H91.90 Unspecified hearing loss, unspecified ear; J44.9 Chronic obstructive pulmonary disease, unspecified; M19.90 Unspecified osteoarthritis, unspecified site; M81.0 Age-related osteoporosis without current pathological fracture; F41.9 Anxiety disorder, unspecified; Z88.1 Allergy status to other antibiotic agents; Z88.8 Allergy status to other drugs, medicaments and biological substances; Z87.01 Personal history of pneumonia (recurrent); Z88.0 Allergy status to penicillin; Z91.0110 Allergy to milk products, unspecified; Z79.899 Other long term (current) drug therapy; Z79.1 Long term (current) use of non-steroidal anti-inflammatories (NSAID); Z95.0 Presence of cardiac pacemaker; Z87.19 Personal history of other diseases of the digestive system; Z87.440 Personal history of urinary (tract) infections; Z98.49 Cataract extraction status, unspecified eye; Z95.2 Presence of prosthetic heart valve; Z90.710 Acquired absence of both cervix and uterus
CPT/HCPCS: 36415; 71045; 73630; 80053; 81003; 82550; 83605; 83735; 83880; 84484; 85025; 86140; 93970; 99285; A9270; 99284; J2020

== ENCOUNTER 2025-01-05 15:48 | Emergency (ER) | payer MEDICARE ==
[2025-01-05] MEDS ORDERED: Sodium Chloride 0.9% 2.5 ML Syringe FLUSH PRN (16:35)
[2025-01-05] MEDS ORDERED: Sodium Chloride 0.9% 10 ML Syringe FLUSH PRN (16:35)
[2025-01-05 16:47] LABS: MEAN PLATELET VOLUME 9.2 fL (9.4-12.3); NRBC ABSOLUTE 0.00 K/uL (0.00-0.02); NRBC PERCENT 0.0 /100WBC (0.0-0.2); PLATELET COUNT,PLT 284 K/uL (150-400); RED BLOOD CELL COUNT 3.20 M/uL (4.10-5.30); WHITE BLOOD CELL COUNT,WBC 4.21 K/uL (3.9-11.3)
[2025-01-05 16:59] LABS: APPEARANCE,URINE CLEAR; GLUCOSE,URINE NEGATIVE (NEGATIVE); OCCULT BLOOD,URINE NEGATIVE (NEGATIVE)
[2025-01-05 17:03] LABS: A/G RATIO 0.8 (0.9-1.6); ALANINE AMINOTRANSFERASE,ALT 7.0 IU/L (14-63); ASPARTATE AMNIOTRANSFERASE,AST 15.0 IU/L (15-37); BILIRUBIN TOTAL 0.2 mg/dL (0.2-1.0); BLOOD UREA NITROGEN,BUN 57.0 mg/dL (7.0-18.0); CARBON DIOXIDE,CO2 33.1 mmol/L (21.0-32.0); CHLORIDE,CL 100.0 mmol/L (98-107); CREATININE 1.4 mg/dL (0.6-1.0); EST CRCL DRUG DOSING (CG) 23.86 mL/min; GLUCOSE RANDOM 108.0 mg/dL (74-106); POTASSIUM,K 4.3 mmol/L (3.5-5.1); PRO B-TYPE NATRIUR PEPT,BNPPRO 684.0 pg/mL (0-450); PROTEIN TOTAL,TP 6.9 g/dL (6.4-8.2); SODIUM,NA 140.0 mmol/L (136-145)
[2025-01-05 17:23] LABS: EOSINOPHILS ABSOLUTE MAN 0.08 K/uL (0.00-0.45); EOSINOPHILS PERCENT MAN 2 % (0-6); ESTIMATED GFR 37.0 mL/min (>60); LYMPHOCYTES ABSOLUTE MAN 1.14 K/uL (1.00-4.80); LYMPHOCYTES PERCENT MAN 27 % (24-44); MONOCYTES ABSOLUTE MAN 1.01 K/uL (0.00-0.80); MONOCYTES PERCENT MAN 24 % (0-8); SEG NEUTROPHILS ABSOLUTE MAN 1.98 K/uL (1.80-7.70); SEG NEUTROPHILS PERCENT MAN 47 % (41-71)
== END 2025-01-05 20:30 | disposition home or self-care (01) ==
LOC: MW.ED 15:48
DX: L03.115 Cellulitis of right lower limb (principal); L03.116 Cellulitis of left lower limb; J44.9 Chronic obstructive pulmonary disease, unspecified; Z90.710 Acquired absence of both cervix and uterus; Z95.2 Presence of prosthetic heart valve; Z88.0 Allergy status to penicillin; Z88.1 Allergy status to other antibiotic agents; Z88.8 Allergy status to other drugs, medicaments and biological substances; Z91.0110 Allergy to milk products, unspecified; Z79.899 Other long term (current) drug therapy; Z75.3 Unavailability and inaccessibility of health-care facilities
CPT/HCPCS: 36415; 73700; 80053; 81003; 83735; 83880; 85025; 99284; A9270; 99283

== ENCOUNTER 2025-01-09 10:37 | Inpatient (IN) | payer MEDICARE ==
[2025-01-09] MEDS ORDERED: Sodium Chloride 0.9% 10 ML Syringe FLUSH PRN ×2 (10:53→13:12)
[2025-01-09] MEDS ORDERED: Sodium Chloride 0.9% 2.5 ML Syringe FLUSH PRN ×2 (10:53→13:12)
[2025-01-09 11:29] LABS: BASOPHILS ABSOLUTE AUTO 0.04 K/uL (0.00-0.20); BASOPHILS PERCENT AUTO 0.5 % (0.0-1.0); EOSINOPHILS ABSOLUTE AUTO 0.21 K/uL (0.00-0.45); EOSINOPHILS PERCENT AUTO 2.7 % (0.0-6.0); IMMATURE GRAN ABSOLUTE AUTO 0.02 K/uL (0.00-0.05); IMMATURE GRAN PERCENT AUTO 0.3 % (0.0-0.4); LYMPHOCYTES ABSOLUTE AUTO 1.83 K/uL (1.00-4.80); LYMPHOCYTES PERCENT AUTO 23.9 % (24.0-44.0); MEAN PLATELET VOLUME 9.2 fL (9.4-12.3); MONOCYTES ABSOLUTE AUTO 1.15 K/uL (0.00-0.80); MONOCYTES PERCENT AUTO 15.0 % (0.0-8.0); NEUTROPHILS ABSOLUTE AUTO 4.41 K/uL (1.80-7.70); NEUTROPHILS PERCENT AUTO 57.6 % (41.0-71.0); NRBC ABSOLUTE 0.00 K/uL (0.00-0.02); NRBC PERCENT 0.0 /100WBC (0.0-0.2); PLATELET COUNT,PLT 288 K/uL (150-400); RED BLOOD CELL COUNT 3.33 M/uL (4.10-5.30); WHITE BLOOD CELL COUNT,WBC 7.66 K/uL (3.9-11.3)
[2025-01-09 11:49] LABS: APPEARANCE,URINE CLEAR; GLUCOSE,URINE NEGATIVE (NEGATIVE); OCCULT BLOOD,URINE TRACE-LYSED (NEGATIVE)
[2025-01-09 11:57] LABS: A/G RATIO 0.8 (0.9-1.6); ALANINE AMINOTRANSFERASE,ALT 8.0 IU/L (14-63); ASPARTATE AMNIOTRANSFERASE,AST 14.0 IU/L (15-37); BILIRUBIN TOTAL 0.3 mg/dL (0.2-1.0); BLOOD UREA NITROGEN,BUN 57.0 mg/dL (7.0-18.0); CARBON DIOXIDE,CO2 32.5 mmol/L (21.0-32.0); CHLORIDE,CL 100.0 mmol/L (98-107); CREATININE 1.5 mg/dL (0.6-1.0); EST CRCL DRUG DOSING (CG) 22.27 mL/min; GLUCOSE RANDOM 108.0 mg/dL (74-106); POTASSIUM,K 4.6 mmol/L (3.5-5.1); PROTEIN TOTAL,TP 7.1 g/dL (6.4-8.2); SODIUM,NA 140.0 mmol/L (136-145)
[2025-01-09 11:58] LABS: ESTIMATED GFR 34.0 mL/min (>60)
[2025-01-09 11:58] LABS: EPITHELIAL CELLS,URINE RARE (NONE-FEW)
[2025-01-09 11:59] LABS: LACTIC ACID 2.0 mmol/L (0.4-2.0)
[2025-01-09] MEDS ORDERED: Ondansetron 4 MG/2 ML SDV IVPUSH PRN (13:12)
[2025-01-09] MEDS: Furosemide 40 MG/4 ML VIAL IVPUSH SCH (14:12)
[2025-01-09] MEDS: Heparin Sodium 5,000 Units/ML Vial SUBCUT SCH (14:12)
[2025-01-09] MEDS: cefTRIAXone 1 GM in Water For Injection, Sterile 10 ML IVPUSH SCH (14:12)
[2025-01-09] MEDS ORDERED: Fluticasone NASAL Spray 16 GM Bottle NASBOTH PRN (21:00)
[2025-01-10 05:56] LABS: BASOPHILS ABSOLUTE AUTO 0.04 K/uL (0.00-0.20); BASOPHILS PERCENT AUTO 0.9 % (0.0-1.0); EOSINOPHILS ABSOLUTE AUTO 0.23 K/uL (0.00-0.45); EOSINOPHILS PERCENT AUTO 5.0 % (0.0-6.0); IMMATURE GRAN ABSOLUTE AUTO 0.02 K/uL (0.00-0.05); IMMATURE GRAN PERCENT AUTO 0.4 % (0.0-0.4); LYMPHOCYTES ABSOLUTE AUTO 1.47 K/uL (1.00-4.80); LYMPHOCYTES PERCENT AUTO 31.7 % (24.0-44.0); MEAN PLATELET VOLUME 9.2 fL (9.4-12.3); MONOCYTES ABSOLUTE AUTO 0.72 K/uL (0.00-0.80); MONOCYTES PERCENT AUTO 15.5 % (0.0-8.0); NEUTROPHILS ABSOLUTE AUTO 2.16 K/uL (1.80-7.70); NEUTROPHILS PERCENT AUTO 46.5 % (41.0-71.0); NRBC ABSOLUTE 0.00 K/uL (0.00-0.02); NRBC PERCENT 0.0 /100WBC (0.0-0.2); PLATELET COUNT,PLT 256 K/uL (150-400); RED BLOOD CELL COUNT 3.36 M/uL (4.10-5.30); WHITE BLOOD CELL COUNT,WBC 4.64 K/uL (3.9-11.3)
[2025-01-10 06:20] LABS: BLOOD UREA NITROGEN,BUN 50.0 mg/dL (7.0-18.0); CARBON DIOXIDE,CO2 34.3 mmol/L (21.0-32.0); CHLORIDE,CL 100.0 mmol/L (98-107); CREATININE 1.5 mg/dL (0.6-1.0); EST CRCL DRUG DOSING (CG) 22.27 mL/min; ESTIMATED GFR 34.0 mL/min (>60); GLUCOSE RANDOM 95.0 mg/dL (74-106); POTASSIUM,K 3.7 mmol/L (3.5-5.1); SODIUM,NA 139.0 mmol/L (136-145)
[2025-01-10] MEDS: Cholecalciferol (Vitamin D3) 25 MCG Tab PO SCH (08:27)
[2025-01-10] MEDS: Acidophilus with Citrus Pectin/L.acidophilus Tab PO SCH (08:29)
[2025-01-10] MEDS ORDERED: MAG PO SCH (09:00)
[2025-01-10] MEDS ORDERED: CALC PO SCH (09:00)
[2025-01-10] MEDS ORDERED: [UNRECOGNIZED DRUG - OTHER] PO SCH (09:00)
[2025-01-10] MEDS ORDERED: D3 PO SCH (09:00)
[2025-01-11 05:45] LABS: BASOPHILS ABSOLUTE AUTO 0.03 K/uL (0.00-0.20); BASOPHILS PERCENT AUTO 0.7 % (0.0-1.0); EOSINOPHILS ABSOLUTE AUTO 0.29 K/uL (0.00-0.45); EOSINOPHILS PERCENT AUTO 6.4 % (0.0-6.0); IMMATURE GRAN ABSOLUTE AUTO 0.02 K/uL (0.00-0.05); IMMATURE GRAN PERCENT AUTO 0.4 % (0.0-0.4); LYMPHOCYTES ABSOLUTE AUTO 1.28 K/uL (1.00-4.80); LYMPHOCYTES PERCENT AUTO 28.3 % (24.0-44.0); MEAN PLATELET VOLUME 9.6 fL (9.4-12.3); MONOCYTES ABSOLUTE AUTO 0.90 K/uL (0.00-0.80); MONOCYTES PERCENT AUTO 19.9 % (0.0-8.0); NEUTROPHILS ABSOLUTE AUTO 2.00 K/uL (1.80-7.70); NEUTROPHILS PERCENT AUTO 44.3 % (41.0-71.0); NRBC ABSOLUTE 0.00 K/uL (0.00-0.02); NRBC PERCENT 0.0 /100WBC (0.0-0.2); PLATELET COUNT,PLT 289 K/uL (150-400); RED BLOOD CELL COUNT 3.34 M/uL (4.10-5.30); WHITE BLOOD CELL COUNT,WBC 4.52 K/uL (3.9-11.3)
[2025-01-11 06:04] LABS: BLOOD UREA NITROGEN,BUN 41.0 mg/dL (7.0-18.0); CARBON DIOXIDE,CO2 34.0 mmol/L (21.0-32.0); CHLORIDE,CL 102.0 mmol/L (98-107); CREATININE 1.4 mg/dL (0.6-1.0); EST CRCL DRUG DOSING (CG) 23.86 mL/min; GLUCOSE RANDOM 95.0 mg/dL (74-106); POTASSIUM,K 3.6 mmol/L (3.5-5.1); SODIUM,NA 140.0 mmol/L (136-145)
[2025-01-11 06:05] LABS: ESTIMATED GFR 37.0 mL/min (>60)
[2025-01-11] MEDS: Furosemide 40 MG/4 ML VIAL IVPUSH SCH (09:45)
== END 2025-01-11 17:09 | disposition home or self-care (01) | DRG 602 ==
LOC: MW.ED 10:37 → MW.MS 12:55
PROVIDERS: ADMIT Internal Medicine; ATTEND Internal Medicine
DX: L03.116 Cellulitis of left lower limb (principal); L03.115 Cellulitis of right lower limb; I50.9 Heart failure, unspecified; I50.33 Acute on chronic diastolic (congestive) heart failure; M19.90 Unspecified osteoarthritis, unspecified site; I13.0 Hypertensive heart and chronic kidney disease with heart failure and stage 1 through stage 4 chronic kidney disease, or unspecified chronic kidney disease; J44.9 Chronic obstructive pulmonary disease, unspecified; Z88.8 Allergy status to other drugs, medicaments and biological substances; Z88.0 Allergy status to penicillin; Z88.1 Allergy status to other antibiotic agents; Z91.0110 Allergy to milk products, unspecified; Z75.3 Unavailability and inaccessibility of health-care facilities; J41.0 Simple chronic bronchitis; Z66 Do not resuscitate; N18.9 Chronic kidney disease, unspecified; F41.9 Anxiety disorder, unspecified; M81.0 Age-related osteoporosis without current pathological fracture; I73.9 Peripheral vascular disease, unspecified; Z95.0 Presence of cardiac pacemaker; Z96.60 Presence of unspecified orthopedic joint implant; Z95.2 Presence of prosthetic heart valve; Z79.1 Long term (current) use of non-steroidal anti-inflammatories (NSAID); Z79.899 Other long term (current) drug therapy; Z98.49 Cataract extraction status, unspecified eye; Z90.710 Acquired absence of both cervix and uterus; Z95.1 Presence of aortocoronary bypass graft
CPT/HCPCS: 36415; 78315; 80053; 81001; 83605; 84550; 85025; 85652; 86140; 99285; A9270; 80048; 80202; 93922; 93922-26; 93925; 93970; 93970-26; 99284; J0696; J1644; J1938; J3373; J7050

== ENCOUNTER 2025-01-27 12:04 | Emergency (ER) | payer MEDICARE ==
[2025-01-27 14:09] LABS: BASOPHILS ABSOLUTE AUTO 0.02 K/uL (0.00-0.20); BASOPHILS PERCENT AUTO 0.4 % (0.0-1.0); EOSINOPHILS ABSOLUTE AUTO 0.17 K/uL (0.00-0.45); EOSINOPHILS PERCENT AUTO 3.0 % (0.0-6.0); IMMATURE GRAN ABSOLUTE AUTO 0.02 K/uL (0.00-0.05); IMMATURE GRAN PERCENT AUTO 0.4 % (0.0-0.4); LYMPHOCYTES ABSOLUTE AUTO 1.36 K/uL (1.00-4.80); LYMPHOCYTES PERCENT AUTO 24.3 % (24.0-44.0); MEAN PLATELET VOLUME 9.2 fL (9.4-12.3); MONOCYTES ABSOLUTE AUTO 0.92 K/uL (0.00-0.80); MONOCYTES PERCENT AUTO 16.5 % (0.0-8.0); NEUTROPHILS ABSOLUTE AUTO 3.10 K/uL (1.80-7.70); NEUTROPHILS PERCENT AUTO 55.4 % (41.0-71.0); NRBC ABSOLUTE 0.00 K/uL (0.00-0.02); NRBC PERCENT 0.0 /100WBC (0.0-0.2); PLATELET COUNT,PLT 302 K/uL (150-400); RED BLOOD CELL COUNT 3.38 M/uL (4.10-5.30); WHITE BLOOD CELL COUNT,WBC 5.59 K/uL (3.9-11.3)
[2025-01-27 14:31] LABS: A/G RATIO 0.9 (0.9-1.6); ALANINE AMINOTRANSFERASE,ALT 9.0 IU/L (14-63); ASPARTATE AMNIOTRANSFERASE,AST 15.0 IU/L (15-37); BILIRUBIN TOTAL 0.3 mg/dL (0.2-1.0); BLOOD UREA NITROGEN,BUN 88.0 mg/dL (7.0-18.0); CARBON DIOXIDE,CO2 36.9 mmol/L (21.0-32.0); CHLORIDE,CL 98.0 mmol/L (98-107); CREATININE 1.6 mg/dL (0.6-1.0); EST CRCL DRUG DOSING (CG) 20.88 mL/min; ESTIMATED GFR 31.0 mL/min (>60); GLUCOSE RANDOM 102.0 mg/dL (74-106); POTASSIUM,K 3.8 mmol/L (3.5-5.1); PROTEIN TOTAL,TP 7.2 g/dL (6.4-8.2); SODIUM,NA 143.0 mmol/L (136-145)
[2025-01-27 14:51] LABS: APPEARANCE,URINE CLEAR; GLUCOSE,URINE NEGATIVE (NEGATIVE); OCCULT BLOOD,URINE NEGATIVE (NEGATIVE)
[2025-01-27 15:01] LABS: EPITHELIAL CELLS,URINE OCCASIONAL (NONE-FEW)
== END 2025-01-27 15:53 | disposition home or self-care (01) ==
LOC: MW.ED 12:04
DX: E86.0 Dehydration (principal); I48.91 Unspecified atrial fibrillation; J44.9 Chronic obstructive pulmonary disease, unspecified; I50.9 Heart failure, unspecified; Z95.0 Presence of cardiac pacemaker; Z90.710 Acquired absence of both cervix and uterus; Z79.899 Other long term (current) drug therapy; Z88.0 Allergy status to penicillin; Z88.8 Allergy status to other drugs, medicaments and biological substances; Z91.0110 Allergy to milk products, unspecified
CPT/HCPCS: 36415; 80053; 81001; 85025; 99284; A9270